=== PATIENT | male | born 1950 | race Caucasian/White ===

== ENCOUNTER → 2017-10-13 | Outpatient (CLI) | payer MEDICARE ==
[2017-10-13 08:28] LABS: HEMATOCRIT 52.3 % (39.0-51.0); HEMOGLOBIN 17.7 GM/DL (13.0-17.0); MEAN CELL VOLUME 91.1 FL (80.0-100.0); MEAN CORPUSCULAR HEMOGLOBIN 30.9 PG (27.0-34.0); MEAN CORPUSCULAR HGB CONC 33.9 % (32.0-36.0); MEAN PLATELET VOLUME 8.9 FL (7.0-11.0); PLATELET COUNT 214 TH/MM3 (150-450); RED BLOOD COUNT 5.74 MIL/MM3 (4.50-5.90); RED CELL DISTRIBUTION WIDTH 14.7 % (11.6-17.2); WHITE BLOOD COUNT 8.8 TH/MM3 (4.0-11.0)
[2017-10-13 08:44] LABS: ALT (GPT) 51 U/L (12-78); AST (GOT) 37 U/L (15-37); BICARBONATE 24.1 MEQ/L (21.0-32.0); BLOOD UREA NITROGEN 21 MG/DL (7-18); CHLORIDE 104 MEQ/L (98-107); CREATININE 1.04 MG/DL (0.60-1.30); GLOMERULAR FILTRATION RATE 71 ML/MIN (>89); GLUCOSE,FASTING 148 MG/DL (74-99); MAGNESIUM 1.9 MG/DL (1.5-2.5); SODIUM (NA) 137 MEQ/L (136-145)
[2017-10-13 08:45] LABS: CHOLESTEROL 129 MG/DL (120-200)
[2017-10-13 08:48] LABS: ALKALINE PHOSPHATASE 104 U/L (45-117); CHOLESTEROL/ HDL RATIO 2.47 RATIO; HDL CHOLESTEROL 52.2 MG/DL (40.0-60.0); LDL CHOLESTEROL 51 MG/DL (0-99); TOTAL BILIRUBIN ADULT 0.6 MG/DL (0.2-1.0); TOTAL PROTEIN 7.1 GM/DL (6.4-8.2); TRIGLYCERIDES 128 MG/DL (42-150)
== END ==
LOC: CLAB 08:02
PROVIDERS: ATTEND Internal Medicine Interventional Cardiology
DX: I11.0 Hypertensive heart disease with heart failure (principal); I25.10 Atherosclerotic heart disease of native coronary artery without angina pectoris; I42.0 Dilated cardiomyopathy; I50.22 Chronic systolic (congestive) heart failure; E78.00 Pure hypercholesterolemia, unspecified; E66.01 Morbid (severe) obesity due to excess calories; I10 Essential (primary) hypertension
CPT/HCPCS: 36415; 80053; 80061; 83735; 85027